=== PATIENT | male | born 1935 | race Caucasian/White ===

== ENCOUNTER 2019-09-21 09:05 | Emergency (ER) | payer MEDICARE, OTHER ==
[2019-09-21 09:12] VITALS: BP 140/76
--- NOTE | 2019-09-21 09:18 | ED Physician Documentation ---
History of Present Illness - Stated complaint Stated Complaint: MALE - Chief complaint Chief Complaint: UTI - History obtained from History obtained from: Patient - History of Present Illness Timing: Yesterday Pain level max: 4 Pain level now: 4 - Additonal information Additional information: 83-year-old male with a history of UTIs. Presents with dysuria and urinary frequency since yesterday. No fever. No vomiting. Worse with urination, nothing makes it better. No abdominal pain. No back pain. Review of Systems Constitutional: denies: Fever, Chills GI: denies: Vomiting, Diarrhea Skin: denies: Rash Musculoskeletal: denies: Neck pain, Back pain Neurologic: denies: Headache PD PAST MEDICAL HISTORY - Past Medical History Cardiovascular: Hypertension, High cholesterol Respiratory: None Endocrine/Autoimmune: None GI: None : None HEENT: None Psych: None Musculoskeletal: None Derm: None - Past Surgical History Past Surgical History: Yes General: Other Ortho: Other - Present Medications Home Medications: Ambulatory Orders Medication Instructions Recorded Confirmed Hydrochlorothiazide 25 mg PO DAILY 05/23/15 02/21/16 Simvastatin 10 mg PO DAILY 05/23/15 02/21/16 lisinopriL [Lisinopril] 10 mg PO DAILY 05/23/15 02/21/16 Cephalexin [Keflex] 500 mg PO Q6H #28 capsule 09/21/19 - Allergies Allergies/Adverse Reactions: Allergies Allergy/AdvReac Type Severity Reaction Status Date / Time Sulfa (Sulfonamide Allergy Hives Verified 09/21/19 09:12 Antibiotics) - Social History Does the pt smoke?: No Smoking Status: Never smoker Does the pt drink ETOH?: No Does the pt have substance abuse?: No - Immunizations Immunizations are current?: Yes - POLST Patient has POLST: No PD ED PE NORMAL - Vitals Vital signs reviewed: Yes - General General: Alert and oriented X 3, No acute distress - HEENT HEENT: Moist mucous membranes - Neck Neck: Supple, no meningeal sign - Cardiac Cardiac: RRR - Respiratory Respiratory: No respiratory distress, Clear bilaterally - Abdomen Abdomen: Soft, Non tender, Non distended - Back Back: No CVA TTP - Derm Derm: Warm and dry - Neuro Neuro: Alert and oriented X 3 Results - Vitals Vitals: Vital Signs - 24 hr 09/21/19 09:11 Temperature 36.4 C L Heart Rate 81 Respiratory 16 Rate Blood Pressure 140/76 H O2 Saturation 96 Oxygen O2 Source Room air - Labs Labs: Laboratory Tests 09/21/19 09:25 Urine Color YELLOW Urine Clarity CLOUDY Urine pH 7.5 Ur Specific [place] 1.020 Urine Protein 30 H Urine Glucose (UA) NEGATIVE Urine Ketones NEGATIVE Urine Occult Blood TRACE-INTA Urine Nitrite NEGATIVE Urine Bilirubin NEGATIVE Urine Urobilinogen 0.2 (NORMAL) Ur Leukocyte Esterase LARGE H Urine RBC 0-5 Urine WBC >25 H Ur Squamous Epith Cells NONE SEEN Urine Bacteria Few Ur Microscopic Review INDICATED Urine Culture Comments INDICATED PD MEDICAL DECISION MAKING - ED course Complexity details: reviewed results, considered differential, d/w patient ED course: Patient with a UTI. We will place on antibiotics. He is very well-appearing, nontoxic. Afebrile. No evidence of sepsis. Patient counseled regarding signs and symptoms for which I believe and urgent re-evaluation would be necessary. Patient with good understanding of and agreement to plan and is comfortable going home at this time This document was made in part using voice recognition software. While efforts are made to proofread this document, sound alike and grammatical errors may occur. Departure - Departure Disposition: Home, Self Care Clinical Impression: UTI (urinary tract infection) Qualifiers: Urinary tract infection type: acute cystitis Hematuria presence: without hematuria Qualified Code(s): N30.00 - Acute cystitis without hematuria Condition: Good Instructions: ED UTI Cystitis Male Follow-Up: Vidal Vides MD [Primary Care Provider] - Within 1 week Prescriptions: Cephalexin [Keflex] 500 mg PO Q6H #28 capsule Comments: Take all antibiotics until gone. Return if you worsen. Follow-up with your doctor for further care. Discharge Date/Time: 09/21/19 10:29
[2019-09-21 09:32] LABS: BILIRUBIN,URINE NEGATIVE (NEGATIVE); GLUCOSE, URINE (UA) NEGATIVE (NEGATIVE); KETONES,URINE (UA) NEGATIVE (NEGATIVE); LEUKOCYTE ESTERASE, URINE LARGE (NEGATIVE); NITRITE,URINE NEGATIVE (NEGATIVE); OCCULT BLOOD,URINE TRACE-INTA (NEGATIVE); PH,URINE 7.5 PH (5.0-7.5); PROTEIN,URINE 30 mg/dL (NEGATIVE); UROBILINOGEN,URINE 0.2 (NORMAL) E.U./dL (NORMAL)
[2019-09-21 09:33] LABS: CLARITY,URINE CLOUDY (CLEAR)
[2019-09-21 09:46] LABS: BACTERIA,URINE Few /HPF (None Seen); RBC,URINE 0-5 /HPF (0-5); SQUAMOUS EPITHELIAL CELL,UR NONE SEEN (<= Few)
[2019-09-21] MEDS ORDERED: cephALEXin 250 MG CAPSULE PO STA (10:20)
== END 2019-09-21 10:29 | disposition home or self-care (01) ==
LOC: ED 09:05
DX: N30.00 Acute cystitis without hematuria (principal); I10 Essential (primary) hypertension
CPT/HCPCS: 81001; 87077; 87086; 87181; 99283; 99284; A9270; 81003

== ENCOUNTER 2021-09-17 03:05 | Outpatient (CLI) | payer MEDICARE, OTHER | END 2021-09-17 03:06 | disposition critical access hospital (66) | LOC: EMS 03:05 | DX: Z04.3 Encounter for examination and observation following other accident (principal); M25.551 Pain in right hip | CPT/HCPCS: A0425; A0427 ==

== ENCOUNTER 2021-09-17 03:21 | Emergency (ER) | payer MEDICARE, OTHER ==
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
[2021-09-17] MEDS ORDERED: HYDROcod/ACETAM 5/325 MG TABLET PO STA (04:42)
[2021-09-17 05:57] VITALS: BP 183/70
--- NOTE | 2021-09-17 07:52 | CT Report ---
PROCEDURE: HEAD WO INDICATIONS: Trauma TECHNIQUE: Noncontrast 4.5 mm thick angled axial sections acquired from the foramen magnum to the vertex. For r adiation dose reduction, the following was used: automated exposure control, adjustment of mA and/or kV according to patient size. COMPARISON: None. FINDINGS: Image quality: Limited by movement in beam hardening. This is worse at the skull base. CSF spaces: Basal cisterns are patent. No extra-axial fluid collections. Ventricles are normal in size and shape. Brain: No midline shift. Focus of increased density within the periventricular region of the right l ateral ventricle superiorly along the posterior aspect of the right frontal lobe. Diffuse deep and lockhart perficial white matter hypoattenuation. There is cerebral volume loss with prominence of the cerebral sulci. Leahy-white matter interface is normal. Thoracic calcifications are noted within the proximal intracranial carotid arteries. Skull and face: Within limits of this examination there is no definite displaced fracture. Sinuses: Partial opacification of the left frontal sinus. IMPRESSION: Subcentimeter region of focal increased density along the right periventricular region is nonspecific . This is unlikely hemorrhage given the location and lack of other findings. Etiologies include devel oping mass versus ectopic white matter among other etiologies. Consider follow-up CT versus MRI for f urther evaluation. Reviewed by: Twin Mckeon DO on 09/17/2021 6:51 AM [facility] Approved by: Twin Mckeon DO on 09/17/2021 6:51 AM [facility] Station ID: [id number]
--- NOTE | 2021-09-17 07:58 | CT Report ---
PROCEDURE: CERVICAL SPINE WO INDICATIONS: Trama TECHNIQUE: Noncontrast 3 mm thick sections acquired from the skull base to the T4 level. Sagittal and coronal r eformats were then constructed. For radiation dose reduction, the following was used: automated exp osure control, adjustment of mA and/or kV according to patient size. COMPARISON: None. FINDINGS: Image quality: Overlying c-collar somewhat limits evaluation given artifact. In addition, there is mi ld motion. Bones: No fractures or dislocations. Visualized superior ribs are intact. Multilevel cervical dege nerative changes with endplate degenerative changes, uncovertebral joint hypertrophy, and facet arthr opathy. No significant spinal canal stenosis. Varying degrees of mild-moderate neural foraminal steno sis. Soft tissues: Prevertebral soft tissues are normal in thickness. No paravertebral hematomas. No ap ical pneumothoraces. Minimal carotid calcifications at the bifurcations. IMPRESSION: No acute fracture or traumatic subluxation. Multilevel cervical spondylopathy. Reviewed by: Twin Mckeon DO on 09/17/2021 6:57 AM [facility] Approved by: Twin Mckeon DO on 09/17/2021 6:57 AM [facility] Station ID: [id number]
--- NOTE | 2021-09-17 08:00 | XRAY Report ---
PROCEDURE: Femur 2V RT INDICATIONS: Trauma TECHNIQUE: 5 images of the femur were submitted for review. COMPARISON: None. FINDINGS: Bones: No fractures or dislocations. Degenerative changes of the abdominal spine incompletely evalua zay. No suspicious bony lesions. Soft tissues: Benign-appearing soft tissue calcification within the thigh. Soft tissue swelling overl fish the greater trochanter. IMPRESSION: No acute osseous abnormality. Agree with preliminary report. Reviewed by: Twin Mckeon DO on 09/17/2021 6:59 AM [facility] Approved by: Twin Mckeon DO on 09/17/2021 6:59 AM [facility] Station ID: [id number]
--- NOTE | 2021-09-17 08:04 | XRAY Report ---
PROCEDURE: Hip w/Pelvis 2-3V RT INDICATIONS: Trauma TECHNIQUE: AP pelvis with lateral view(s) of the right hip(s). COMPARISON: None. FINDINGS: Bones: No fractures or dislocations. Pelvic ring appears intact. No suspicious bony lesions. Mild -Moderate degenerative changes of the hips with prominence of the superior lateral acetabulum. Cortic ated ossific fragment along the right acetabulum may represent an accessory ossicle. Degenerative phil nges of the spine. Soft tissues are overlying the greater trochanter. Soft tissues: The visualized bowel gas pattern is normal. No suspicious soft tissue calcifications. IMPRESSION: No acute osseous abnormality. Agree with preliminary report. Reviewed by: Twin Mckeon DO on 09/17/2021 7:03 AM [facility] Approved by: Twin Mckeon DO on 09/17/2021 7:03 AM [facility] Station ID: [id number]
--- NOTE | 2021-09-17 08:06 | XRAY Report ---
PROCEDURE: Humerus RT INDICATIONS: Trauma TECHNIQUE: 4 views of the humerus were acquired. COMPARISON: None FINDINGS: Bones: No fractures or dislocations. No suspicious bony lesions. Degenerative changes of the shoul ders and elbow. Soft tissues: No suspicious soft tissue calcifications. IMPRESSION: No acute osseous abnormality. Agree with preliminary report. Reviewed by: Twin Mckeon DO on 09/17/2021 7:05 AM [facility] Approved by: Twin Mckeon DO on 09/17/2021 7:05 AM [facility] Station ID: [id number]
--- NOTE | 2021-09-17 08:08 | XRAY Report ---
PROCEDURE: Finger(s) LT INDICATIONS: Lft thumb pain TECHNIQUE: AP hand, 2 views of the thumb acquired. COMPARISON: None FINDINGS: Bones: No fractures or dislocations. No suspicious bony lesions. Osseous demineralization. Degener ative changes noted throughout the hand and wrist worse at the first carpometacarpal joint is severe. Soft tissues: No suspicious soft tissue calcifications. IMPRESSION: No acute osseous abnormality. Degenerative changes of the wrist and hand worse at the first carpometacarpal joint which is severe. Agree with preliminary report. Reviewed by: Twin Mckeon DO on 09/17/2021 7:07 AM [facility] Approved by: Twin Mckeon DO on 09/17/2021 7:07 AM [facility] Station ID: [id number]
== END 2021-09-17 06:59 | disposition home or self-care (01) ==
LOC: EDUNIT# → ED 03:21
DX: S09.90XA Unspecified injury of head, initial encounter (principal); S63.602A Unspecified sprain of left thumb, initial encounter; M79.621 Pain in right upper arm; M25.551 Pain in right hip; M79.604 Pain in right leg; Y04.8XXA Assault by other bodily force, initial encounter; Y92.129 Unspecified place in nursing home as the place of occurrence of the external cause; I10 Essential (primary) hypertension; M47.812 Spondylosis without myelopathy or radiculopathy, cervical region
CPT/HCPCS: 70450; 72125; 73060; 73140; 73502; 73552; 99282; 99284; A9270

== ENCOUNTER 2021-09-20 15:44 | Outpatient (CLI) | payer MEDICARE, OTHER | END 2021-09-20 15:45 | disposition critical access hospital (66) | LOC: EMS 15:44 | DX: R41.0 Disorientation, unspecified (principal) | CPT/HCPCS: A0425; A0429 ==

== ENCOUNTER 2021-09-20 16:03 | Emergency (ER) | payer MEDICARE, OTHER ==
--- NOTE | 2021-09-20 16:24 | ED Physician Documentation ---
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 His nurse practitioner called me prior to arrival and noted that he seems much more confused than normal. He was complaining of headaches and she noticed an irregular heart rhythm. I noted that he was seen here the other night and a head CT was done which was read by the overnight radiologist as normal, but the day read commented on potentially a small intracranial hemorrhage which was not otherwise communicated. Review of Systems Unable to obtain: Confused PD PAST MEDICAL HISTORY - Past Medical History Cardiovascular: Hypertension, High cholesterol Respiratory: None Neuro: None Endocrine/Autoimmune: None GI: None : None HEENT: None Psych: None Musculoskeletal: None Derm: None - Past Surgical History Past Surgical History: Yes General: Other Ortho: Other HEENT: Tonsil/Adenoidectomy - Present Medications Home Medications: Ambulatory Orders Medication Instructions Recorded Confirmed Simvastatin 10 mg PO DAILY 05/23/15 02/21/16 hydroCHLOROthiazide 25 mg PO DAILY 05/23/15 02/21/16 [Hydrochlorothiazide] lisinopriL [Lisinopril] 10 mg PO DAILY 05/23/15 02/21/16 cephALEXin [Keflex] 500 mg PO Q6H #28 capsule 09/21/19 Acetaminophen [Tylenol] 650 mg PO Q6H PRN #30 tablet 09/17/21 Ibuprofen [Motrin] 800 mg PO Q8H PRN #30 tablet 09/17/21 Cefdinir 300 mg PO BID #20 cap 09/20/21 - Allergies Allergies/Adverse Reactions: Allergies Allergy/AdvReac Type Severity Reaction Status Date / Time Sulfa (Sulfonamide Allergy Hives Verified 09/17/21 03:39 Antibiotics) - Social History Does the pt smoke?: No Smoking Status: Never smoker Does the pt drink ETOH?: No Does the pt have substance abuse?: No - Immunizations Immunizations are current?: Yes - POLST Patient has POLST: No PD ED PE NORMAL - Vitals Vital signs reviewed: Yes - General General: No acute distress, Other (He is definitely confused, he can say his name and he knows he is in the hospital. When I ask him which hospital he is in he replies 72.) - HEENT HEENT: PERRL, EOMI - Neck Neck: Supple, no meningeal sign, No bony TTP - Cardiac Cardiac: No murmur, Other (Frequent extrasystoles on the monitor which correspond to PVCs.) - Respiratory Respiratory: No respiratory distress, Clear bilaterally - Abdomen Abdomen: Non tender - Neuro Neuro: wireless watcher 2-12 intact Eye Opening: Spontaneous Motor: Obeys Commands Verbal: Confused GCS Score: 14 Results - Vitals Vitals: Vital Signs - 24 hr 09/20/21 09/20/21 16:07 16:42 Temperature 97.3 C H Heart Rate 67 Respiratory 19 Rate Blood Pressure 134/68 H O2 Saturation 96 Oxygen O2 Source Room air - Labs Labs: Laboratory Tests 09/20/21 09/20/21 16:17 16:17 WBC 13.0 H RBC 4.57 L Hgb 13.8 L Hct 41.2 L MCV 90.2 MCH 30.2 MCHC 33.5 RDW 14.4 Plt Count 241 MPV 9.2 Neut # (Auto) 11.1 H Lymph # (Auto) 0.7 L [place] # (Auto) 0.9 Eos # (Auto) 0.3 Baso # (Auto) 0.1 Absolute Nucleated RBC 0.00 Nucleated RBC % 0.0 Sodium 135 Potassium 4.2 Chloride 100 L Carbon Dioxide 25 Anion Gap 10.0 BUN 39 H Creatinine 1.3 H Estimated GFR (MDRD) 52 L Glucose 107 H Calcium 8.5 Magnesium 2.3 Ethyl Alcohol < 5.0 PD MEDICAL DECISION MAKING - ED course ED course: 85 yo gentleman presents with encephalopathy, this is on top of underlying dementia. There was a concern about the finding on the CT from the other night, but this is not corroborated on repeat imaging tonight. CT now is normal. He does have a white count. I discussed with with nurse practitioner Yancy who covers for him at the memory care facility. He was recently treated for UTI with Macrobid. Discussed that since he has some encephalopathy probably needs something that penetrates the kidneys and is bacteriocidal and we reviewed the cultures and it is sensitive to cephalosporins so he is administered IM Rocephin here. Departure - Departure Disposition: 01 Home, Self Care Clinical Impression: Urinary tract infection, Altered mental status Condition: Good Record reviewed to determine appropriate education?: Yes Prescriptions: Cefdinir 300 mg PO BID #20 cap Comments: Lab work notable for white blood cell count of 13,000, BUN of 39, creatinine 1.3, CT of the head unremarkable. He received 1 g of IM Rocephin here.
[2021-09-20 16:26] LABS: BASOPHILS # (AUTO) 0.1 10^3/uL (0.0-0.1); BASOPHILS % (AUTO) 0.5 %; EOSINOPHILS # (AUTO) 0.3 10^3/uL (0.0-0.7); EOSINOPHILS % (AUTO) 2.1 %; HCT - HEMATOCRIT 41.2 % (42.0-52.0); HGB - HEMOGLOBIN 13.8 g/dL (14.0-18.0); LYMPHOCYTES # (AUTO) 0.7 10^3/uL (1.5-3.5); LYMPHOCYTES % (AUTO) 5.2 %; MEAN CORPUSCULAR HEMOGLOBIN 30.2 pg (27.0-31.0); MEAN CORPUSCULAR HGB CONC 33.5 g/dL (32.0-36.0); MEAN CORPUSCULAR VOLUME 90.2 fL (80.0-94.0); MEAN PLATELET VOLUME 9.2 fL (7.4-11.4); MONOCYTES # (AUTO) 0.9 10^3/uL (0.0-1.0); MONOCYTES % (AUTO) 6.7 %; NEUTROPHILS # (AUTO) 11.1 10^3/uL (1.5-6.6); NEUTROPHILS % (AUTO) 85.2 %; PLT - PLATELET COUNT 241 10^3/uL (130-450); RED BLOOD COUNT 4.57 10^6/uL (4.70-6.10); RED CELL DISTRIBUTION WIDTH 14.4 % (12.0-15.0)
[2021-09-20 16:36] LABS: BUN - BLOOD UREA NITROGEN 39 mg/dL (6-20); CALCIUM 8.5 mg/dL (8.5-10.3); CARBON DIOXIDE - CO2 25 mmol/L (21-32); CHLORIDE 100 mmol/L (101-111); CREATININE 1.3 mg/dL (0.6-1.2); ETOH - ETHANOL < 5.0 mg/dL; GFR - MDRD 52 (>89); GLUCOSE 107 mg/dL (70-100); MAGNESIUM 2.3 mg/dL (1.7-2.8); POTASSIUM 4.2 mmol/L (3.5-5.0); SODIUM 135 mmol/L (135-145)
--- NOTE | 2021-09-20 17:35 | CT Report ---
PROCEDURE: HEAD WO INDICATIONS: Head injury TECHNIQUE: Noncontrast 4.5 mm thick angled axial sections acquired from the foramen magnum to the vertex. For r adiation dose reduction, the following was used: automated exposure control, adjustment of mA and/or kV according to patient size. COMPARISON: 09/17/2021. FINDINGS: Image quality: Excellent. CSF spaces: Basal cisterns are patent. No extra-axial fluid collections. Ventricles are normal in size and shape. Brain: Mild global cerebral volume loss and chronic microvascular ischemic changes. No midline shift . No intracranial masses or hemorrhage. Leahy-white matter interface is normal. Skull and face: Calvarium and visualized facial bones are intact, without suspicious lesions. Sinuses: Visualized sinuses and mastoids are clear. IMPRESSION: No acute intracranial abnormality. Reviewed by: Jerel Dudley MD on 09/20/2021 4:33 PM [facility] Approved by: Jerel Dudley MD on 09/20/2021 4:33 PM [facility] Station ID: [id number]
[2021-09-20] MEDS ORDERED: LIDOCAINE 1% 2 ML VIAL MC ONE (17:46)
[2021-09-20] MEDS ORDERED: cefTRIAXone 1 GM VIAL IM STA (17:46)
[2021-09-20] MEDS ORDERED: lidocaine 1% 20 ML MDV ONE (18:26)
[2021-09-20 18:36] VITALS: BP 129/66
== END 2021-09-20 18:45 | disposition home or self-care (01) ==
LOC: EDUNIT# → ED 16:03
DX: N39.0 Urinary tract infection, site not specified (principal); G93.40 Encephalopathy, unspecified; R41.82 Altered mental status, unspecified; F03.90 Unspecified dementia, unspecified severity, without behavioral disturbance, psychotic disturbance, mood disturbance, and anxiety; I49.3 Ventricular premature depolarization; I10 Essential (primary) hypertension
CPT/HCPCS: 36415; 70450; 80048; 83735; 85025; 96372; 99281; 99284; G0480; 80320

== ENCOUNTER 2021-09-20 19:02 | Outpatient (CLI) | payer MEDICARE, OTHER | END 2021-09-20 19:03 | disposition home or self-care (01) | LOC: EMS 19:02 | PROVIDERS: ATTEND Emergency Medicine | DX: F03.90 Unspecified dementia, unspecified severity, without behavioral disturbance, psychotic disturbance, mood disturbance, and anxiety (principal); R41.82 Altered mental status, unspecified | CPT/HCPCS: A0425; A0428 ==

== ENCOUNTER 2021-09-21 05:44 | Outpatient (CLI) | payer MEDICARE, OTHER | END 2021-09-21 05:45 | disposition critical access hospital (66) | LOC: EMS 05:44 | DX: Z04.3 Encounter for examination and observation following other accident (principal) | CPT/HCPCS: A0425; A0429 ==

== ENCOUNTER 2021-09-21 06:00 | Emergency (ER) | payer MEDICARE, OTHER ==
[2021-09-21 06:12] VITALS: BP 120/80
--- NOTE | 2021-09-21 07:42 | ED Physician Documentation ---
History of Present Illness - Stated complaint Stated Complaint: fall - Chief complaint Chief Complaint: Trauma Ext - History obtained from History obtained from: Patient, EMS - Additonal information Additional information: Patient is brought to the emergency department by EMS for chief complaint of fall from ground-level. The patient has a history of dementia and is not able to offer a lot of information. Apparently he was found on the ground complaining of left shoulder, elbow, and knee pain. He was not felt to have hit his head. Review of records reveals the patient has been here recently for increased confusion and has had a negative head CT for acute findings. The patient denies any other complaints at this time. He is not on anticoagulants. Review of Systems Ten Systems: 10 systems reviewed and negative Constitutional: reports: Reviewed and negative Eyes: reports: Reviewed and negative Ears: reports: Reviewed and negative Nose: reports: Reviewed and negative Throat: reports: Reviewed and negative Cardiac: reports: Reviewed and negative Respiratory: reports: Reviewed and negative GI: reports: Reviewed and negative : reports: Reviewed and negative Skin: reports: Reviewed and negative Musculoskeletal: reports: Extremity pain, Joint pain Neurologic: reports: Reviewed and negative Psychiatric: reports: Reviewed and negative Endocrine: reports: Reviewed and negative Immunocompromised: reports: Reviewed and negative PD PAST MEDICAL HISTORY - Past Medical History Past Medical History: Yes Cardiovascular: Hypertension, High cholesterol Respiratory: None Neuro: None Endocrine/Autoimmune: None GI: None : None HEENT: None Psych: None Musculoskeletal: None Derm: None - Past Surgical History Past Surgical History: Yes General: Other Ortho: Other HEENT: Tonsil/Adenoidectomy - Present Medications Home Medications: Ambulatory Orders Medication Instructions Recorded Confirmed Simvastatin 10 mg PO DAILY 05/23/15 02/21/16 hydroCHLOROthiazide 25 mg PO DAILY 05/23/15 02/21/16 [Hydrochlorothiazide] lisinopriL [Lisinopril] 10 mg PO DAILY 05/23/15 02/21/16 cephALEXin [Keflex] 500 mg PO Q6H #28 capsule 09/21/19 Acetaminophen [Tylenol] 650 mg PO Q6H PRN #30 tablet 09/17/21 Ibuprofen [Motrin] 800 mg PO Q8H PRN #30 tablet 09/17/21 Cefdinir 300 mg PO BID #20 cap 09/20/21 HYDROcod/ACETAM 5/325 [Kinsman 5/325] 1 - 2 tablet PO Q6H PRN #14 tablet 09/21/21 - Allergies Allergies/Adverse Reactions: Allergies Allergy/AdvReac Type Severity Reaction Status Date / Time Sulfa (Sulfonamide Allergy Hives Verified 09/21/21 06:09 Antibiotics) - Social History Does the pt smoke?: No Smoking Status: Never smoker Does the pt drink ETOH?: No Does the pt have substance abuse?: No - Immunizations Immunizations are current?: Yes - POLST Patient has POLST: No PD ED PE NORMAL - Vitals Vital signs reviewed: Yes - General General: No acute distress, Well developed/nourished, Other (The patient is alert and very pleasant. He is able to articulate where he is hurting but is otherwise confused.) - HEENT HEENT: Atraumatic, PERRL, EOMI, Moist mucous membranes - Neck Neck: No bony TTP (No step-off) - Cardiac Cardiac: RRR, Strong equal pulses, Other (2 out of 6 systolic murmur) - Respiratory Respiratory: No respiratory distress, Clear bilaterally - Abdomen Abdomen: Soft, Non tender, Non distended - Derm Derm: Warm and dry, No rash, Other (Contusion left elbow on radial aspect.) - Extremities Extremities: No deformity, Other (Moderate edema left elbow, with contusion. Severely limited range of motion, secondary to pain. Mild tenderness about the left shoulder. Difficult to assess range of motion secondary to patient not wanting to move his L elbow at all, which translates to him then not wanting to move the shoulder ) - Neuro Neuro: area development consultant 2-12 intact, No motor deficit, No sensory deficit, Normal speech, Other (Oriented to self and knows he is at the hospital; able to answer simple questions, but displays confusion and delusions.) - Psych Psych: Normal mood, Normal affect PD ED PE EXPANDED - Extremities Extremities: Left leg (Mild abrasion left knee. No tenderness to palpation or pain with range of motion.), Other (No pain with anterior posterior or medial lateral pressure applied to pelvis. No tenderness palpation of hips. No shortening or rotation of patient's lower extremities. No pain with range of motion of hips.) - Free text exam Free text exam: No tenderness to palpation or step-off of any part of the rib cage bilaterally. No crepitus. Results - Vitals Vitals: Oxygen O2 Source Room air - Rads (name of study) L shoulder XR Radiology: Final report received, EMP read indepedently, See rad report (neg) L knee xR Radiology: Final report received, EMP read indepedently, See rad report (nad) L elbow xr Radiology: Final report received, EMP read indepedently, See rad report (distal humerus fx) Procedures - Splint (location) L long arm/posterior Splint applied by: Tech Type of splint: Fiberglass, Long arm Other: Patient tolerated well, No complications, Neurovascular intact, Good alignment PD MEDICAL DECISION MAKING - ED course Complexity details: reviewed results, re-evaluated patient, considered differential, d/w patient ED course: The patient had had x-rays of his left knee and left shoulder obtained prior to my arrival in the emergency department for shift. After my evaluation, I felt he also should have a left elbow x-ray series. This was done and showed an impacted distal humerus fx. I spoke with Dr. Dee, who stated he would see the pt in clinic, and to place a posterior mold splint. This was done in the ED. The pt was comfortable, and I felt he was stable for d/c home. I have sent detailed instructions with the pt to call Dr. Dee's office to set up follow-up for early next week (today is ). We have discussed the usual indications for return. Departure - Departure Disposition: Home, Self Care Clinical Impression: Humerus distal fracture Qualifiers: Encounter type: initial encounter Fracture type: closed Fracture morphology: unspecified fracture morphology Laterality: left Qualified Code(s): S42.402A - Unspecified fracture of lower end of left humerus, initial encounter for closed fracture Condition: Stable Instructions: ED Fx Elbow Follow-Up: Jasen Dee MD [Provider Admit Priv/Credential] - Prescriptions: HYDROcod/ACETAM 5/325 [Kinsman 5/325] 1 - 2 tablet PO Q6H PRN #14 tablet PRN Reason: Pain Comments: Your x-ray shows a break of the bone of your upper arm, your humerus, just above the elbow. The orthopedic surgeon on-call, Dr. Dee, has looked at your x- rays and feels that for now, the best plan is to put you in a splint and have you follow-up to see him. Because of your age, surgery is risky, and he will have to discuss with you the and your family the risks and benefits of having surgery versus casting your arm and letting it heal. In the meantime, please keep the splint on. The staff at [facility] or your family will need to call Dr. Dee's office to set up an appointment to see him early next week. The staff at [facility] may give you pain medication as you need it. Your prescription for pain medication has been electronically transmitted to the [facility] pharmacy in [place]. Discharge Date/Time: 09/21/21 10:05
--- NOTE | 2021-09-21 07:58 | XRAY Report ---
PROCEDURE: Knee 2 View BILAT INDICATIONS: knee pain s/p fall TECHNIQUE: 2 views of the right and left knee(s) were acquired. COMPARISON: None. FINDINGS: Bones: No fractures or dislocations. No suspicious bony lesions. 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 Right knee lateral compartment chondrocalcinosis. Left knee patellar tendon insertion enthesophyte. The right knee quadriceps and patellar tendon insertion enthesophytes. Soft tissues: No joint effusion. IMPRESSION: No fracture. No acute osseous lesion. If there persistent symptoms or continued clinical concern for pathology, then repeat plain film radiographs (7-10 days) or advanced imaging (CT, MR, bone scan) nikki uld be considered for further evaluation. Reviewed by: Eve Givens MD, PhD on 09/21/2021 7:57 AM PST Approved by: Eve Givens MD, PhD on 09/21/2021 7:57 AM [facility] Station ID: [id number]
--- NOTE | 2021-09-21 08:00 | XRAY Report ---
PROCEDURE: Shoulder 2 View LT INDICATIONS: shoulder pain s/p fall TECHNIQUE: 2 views of the shoulder were acquired. COMPARISON: None. FINDINGS: Bones: No fractures or dislocations. No suspicious bony lesions. Visualized ribs appear intact. Mi ld superior subluxation of the left humeral head possibly related to chronic rotator cuff tear. Mild glenohumeral and acromioclavicular joint osteoarthritis. Soft tissues: No suspicious soft tissue calcifications. IMPRESSION: 1. No fracture. No acute osseous lesion. If there persistent symptoms or continued clinical concern f or pathology, then repeat plain film radiographs (7-10 days) or advanced imaging (CT, MR, bone scan) should be considered for further evaluation. 2. Mild superior subluxation humeral head which could be related to chronic rotator cuff tear. Recomm end MRI left shoulder clinically indicated. Reviewed by: Eve Givens MD, PhD on 09/21/2021 7:58 AM PST Approved by: Eve Givens MD, PhD on 09/21/2021 7:58 AM PST Station ID: [id number]
--- NOTE | 2021-09-21 08:07 | XRAY Report ---
PROCEDURE: Elbow 3 View LT INDICATIONS: fall/pain/limited ROM/swelling TECHNIQUE: 3 views of the elbow were acquired. COMPARISON: None FINDINGS: Bones: Distal left humerus transcondylar fracture. Soft tissues: No elbow joint effusion. No suspicious soft tissue calcifications. IMPRESSION: Transcondylar humerus fracture. Reviewed by: Eve Givens MD, PhD on 09/21/2021 8:05 AM [facility] Approved by: Eve Givens MD, PhD on 09/21/2021 8:05 AM [facility] Station ID: [id number]
== END 2021-09-21 10:05 | disposition home or self-care (01) ==
LOC: EDUNIT# → ED 06:00 → SUPCPDRO 06:00 → ED 10:05
DX: S42.475A Nondisplaced transcondylar fracture of left humerus, initial encounter for closed fracture (principal); W18.30XA Fall on same level, unspecified, initial encounter; I10 Essential (primary) hypertension
CPT/HCPCS: 29105; 99283

== ENCOUNTER 2021-09-21 09:35 | Outpatient (CLI) | payer MEDICARE, OTHER | END 2021-09-21 23:59 | disposition home or self-care (01) | LOC: EMS 09:35 | PROVIDERS: ATTEND Emergency Medicine | DX: F03.90 Unspecified dementia, unspecified severity, without behavioral disturbance, psychotic disturbance, mood disturbance, and anxiety (principal); S42.402D Unspecified fracture of lower end of left humerus, subsequent encounter for fracture with routine healing; R41.0 Disorientation, unspecified; Z91.81 History of falling | CPT/HCPCS: A0425; A0428 ==

== ENCOUNTER → 2021-09-26 | Outpatient (CLI) | payer MEDICARE, OTHER ==
--- NOTE | 2021-09-26 15:49 | XRAY Report ---
PROCEDURE: Elbow 3 View LT INDICATIONS: ELBOW FX F/U TECHNIQUE: 3 views of the elbow were acquired. COMPARISON: 09/21/2021 FINDINGS: Bones: There is improved alignment of the intercondylar distal humeral fracture. There is evidence of cortication at the fracture margins. Soft tissues: Small elbow effusion with multiple intra-articular loose bodies. No suspicious soft tis kristian calcifications. IMPRESSION: 1. 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 2. Small elbow joint effusion with intra-articular loose bodies. Reviewed by: Yoel Lay MD on 09/26/2021 3:47 PM PST Approved by: Yoel Lay MD on 09/26/2021 3:47 PM PST Station ID: [id number]
== END ==
LOC: DI.WOS 11:00
PROVIDERS: ATTEND Orthopaedic Surgery
DX: S42.402K Unspecified fracture of lower end of left humerus, subsequent encounter for fracture with nonunion (principal); M25.422 Effusion, left elbow; M24.022 Loose body in left elbow

== ENCOUNTER 2021-10-10 08:24 | Outpatient (CLI) | payer MEDICARE, OTHER ==
--- NOTE | 2021-10-10 12:12 | XRAY Report ---
PROCEDURE: Elbow 3 View LT INDICATIONS: F/U LEFT ELBOW FRACTURE TECHNIQUE: 3 views of the elbow were acquired. COMPARISON: X-ray of the left elbow, 09/26/2021, 09/21/2021, the FINDINGS: Bones: There is a transcondylar fracture in the distal humerus, unchanged in alignment. There is inc reased callus formation. No suspicious bony lesions. Soft tissues: No elbow joint effusion. No suspicious soft tissue calcifications. IMPRESSION: Transcondylar fracture with stable alignment and increased callus formation. Reviewed by: Constance Su MD on 10/10/2021 12:10 PM PST Approved by: Constance Su MD on 10/10/2021 12:10 PM PST Station ID: [id number]
== END 2021-10-10 08:25 | disposition home or self-care (01) ==
LOC: DI.WOS 08:24
PROVIDERS: ATTEND Orthopaedic Surgery
DX: S42.472D Displaced transcondylar fracture of left humerus, subsequent encounter for fracture with routine healing (principal)

== ENCOUNTER 2021-11-07 08:06 | Outpatient (CLI) | payer MEDICARE, OTHER ==
--- NOTE | 2021-11-07 19:32 | XRAY Report ---
PROCEDURE: Elbow 3 View LT INDICATIONS: ELBOW FRACTURE TECHNIQUE: 3 views of the elbow were acquired. COMPARISON: 10/10/2021 FINDINGS: Bones: Healing transverse fracture through the distal ulnar metaphysis shows slight resorptive the fr acture line. Periosteal reaction and minimal evidence of bridging callus. Soft tissues: No elbow joint effusion. No suspicious soft tissue calcifications. IMPRESSION: Healing distal ulnar metaphyseal fracture Reviewed by: Thiago Sanchez MD on 11/07/2021 6:31 PM [place] Approved by: Thiago Sanchez MD on 11/07/2021 6:31 PM [place] Station ID: [id number]
== END 2021-11-07 08:07 | disposition home or self-care (01) ==
LOC: DI.WOS 08:06
PROVIDERS: ATTEND Orthopaedic Surgery
DX: S42.415D Nondisplaced simple supracondylar fracture without intercondylar fracture of left humerus, subsequent encounter for fracture with routine healing (principal)

== ENCOUNTER 2021-11-14 10:19 | Outpatient (CLI) | payer MEDICARE, OTHER ==
--- NOTE | 2021-11-14 16:59 | Ultrasound Report ---
PROCEDURE: Retroperitoneal INDICATIONS: URINARY RETENTION TECHNIQUE: Real-time scanning was performed of the retroperitoneal organs, with image documentation. COMPARISON: None. FINDINGS: Kidneys: Kidneys are normal in size. Right kidney measures 11.4 cm long; left kidney measures 11.5 cm long. Right renal cortical thickness is 1.31 cm; left renal cortical thickness is 1.56 cm. No so lid masses, hydronephrosis, or nephrolithiasis. A right-sided peripelvic cyst is seen measures 4.5 x 4 x 3.1 cm in size with thin internal septations. Left-sided peripelvic cyst measures 1.7 x 1.1 x 1.2 cm in size is also seen. Bladder: Prevoid bladder volume is 352.6 cc. Postvoid residual is 181.43 cc. No discrete bladder wall mass or significant bladder wall thickening. Numerous small bladder wall diverticuli are seen. Enlar ged prostate gland measures 4.6 x 3.7 x 5.6 cm in size, with mild mass effect on floor of urinary bita dder is seen. Bilateral ureteral jets are seen. IMPRESSION: 1. Bilateral peripelvic renal cysts as above. No solid-appearing renal lesion. No hydronephrosis. 2. Enlarged prostate gland with mild mass effect on floor of urinary bladder. No bladder wall mass or significant wall thickening. Moderate to large post void residual as above. Numerous small bladder w all diverticula. Finding likely represent chronic urinary outlet obstruction. Reviewed by: Donte Awad MD on 11/14/2021 4:58 PM PST Approved by: Donte Awad MD on 11/14/2021 4:58 PM PST Station ID: [id number]
== END 2021-11-14 10:20 | disposition home or self-care (01) ==
LOC: DI 10:19
PROVIDERS: ATTEND Physician Assistant Medical
DX: N28.1 Cyst of kidney, acquired (principal); N40.1 Benign prostatic hyperplasia with lower urinary tract symptoms; R33.8 Other retention of urine; N32.3 Diverticulum of bladder